=== PATIENT | female | born 1935 | race Caucasian/White ===

== ENCOUNTER → 2017-01-25 | Outpatient (CLI) | payer OTHER, BC ==
--- NOTE | 2017-01-25 10:56 | DIAGNOSTIC IMAGING REPORT ---
THORACIC SPINE 3-VIEWS CLINICAL HISTORY: Back pain status post trauma COMPARISON STUDY: No previous studies for comparison. FINDINGS: There is an S-shaped scoliosis. The paraspinal line is not displaced. There is age-indeterminate T10 compression fracture. IMPRESSION: Mild age-indeterminate T10 compression deformity. Electronically signed by: James March M.D. 01/25/2017 10:55 AM Dictated Date/Time: 01/25/2017 10:53 AM
--- NOTE | 2017-01-25 10:58 | DIAGNOSTIC IMAGING REPORT ---
RIGHT SCAPULA COMPLETE CLINICAL HISTORY: 82 years-old Female presenting with RIGHT SCAPULA PAIN Right. TECHNIQUE: Frontal and lateral views of the scapula were obtained. COMPARISON: Correlation made to plain radiographs of the left shoulder from 2015. FINDINGS: Glenohumeral and acromioclavicular joints grossly congruent. No displaced scapular fracture is apparent. The proximal humerus is normal in appearance. Regional soft tissues normal. IMPRESSION: No acute osseous injury of the right scapula. Electronically signed by: Woo Alvarez M.D. 01/25/2017 10:56 AM Dictated Date/Time: 01/25/2017 10:54 AM
== END | disposition home or self-care (01) ==
LOC: C.RDSM 10:27
PROVIDERS: ATTEND Physician Assistant
DX: M25.511 Pain in right shoulder (principal)

== ENCOUNTER 2021-02-17 12:47 | Inpatient (IN) ==
--- NOTE | 2021-02-17 13:16 | Emergency Department Note ---
Impression & Plan Hyponatremia, Acute metabolic encephalopathy, Hypomagnesemia, Hypocalcemia ED Provider Note NAME: SHIELA CHOE AGE: 86 SEX: F : 1935 ARRIVES VIA: Ambulance INFORMANT: Patient, ED PROVIDER(S): Lex Rivera MD Chief Complaint: Confusion HPI: Patient does present from home due to concern for confusion. The patient's son had reportedly called the patient and noted the patient to be confused. Will check was performed by police and the patient was noted to be walking around with her pants down and there was concern for the possibility of trauma as the patient did have a left forearm hematoma. Patient reportedly was not oriented to place or time. Upon presentation the patient denies any head or neck pain. Patient has any fevers or chills. She does not report any history of seizures. The patient is able to tell her name and birthday. She is able to state that she is in [place] and that she has a son named Camilo. Patient denies any fevers chills chest pain shortness of breath or vomiting. The patient does complain of some mild nausea. ROS: See HPI for pertinent positives and negatives. A total of 10 systems were reviewed and otherwise negative. History may be somewhat limited given the patient's confusion. Past medical history: See below Surgical history: See below Social history: See below Physical Exam: GENERAL: NAD, non-toxic. EYE EXAM: Normal conjunctiva. PERRL, no anisocoria and EOM's grossly intact w/o pain. OROPHARYNX: Dry mucus membranes. Grossly normal dentition. NECK: Supple, no nuchal rigidity, no adenopathy, non-tender. No signs of meningismus. No midline C-spine TTP. LUNGS: Clear to auscultation. Normal chest wall mechanics. HEART: NSR, no MRG. ABDOMEN: Abdomen soft, non-tender, normo-active bowel sounds, no masses, no rebound or guarding. BACK: No CVA TTP. SKIN: No rashes and no bruising. UPPER EXTREMITIES: Left forearm with ecchymosis and mild hematoma, compartments are soft and neurovascular intact distally, mild TTP. LOWER EXTREMITIES: Grossly normal, no edema. NEURO EXAM: Awake and alert, follows basic commands, able to answer person, state, and birthday, answers simple arithmetic, cranial nerves II-XII grossly intact, normal speech, moves all 4 extremities on command w/o issue. Differential diagnoses: Infection, dehydration, metabolic abnormality, hypo/hyperglycemia, electrolyte disturbance, anemia, hypoxia, cardiac sources, intracerebral event, toxicologic, neurologic, as well as other pathologies. Course: Patient was seen and evaluated the bedside. Full history physical exam was performed. EKG interpreted by me Sinus, rate of 83, normal CA and QRS, normal axis, T wave flattening in aVL, no ST changes. Imaging Studies: See Below Cardiac monitoring: An order was placed for continuous cardiac monitoring. The monitor shows a rate of 87 with sinus rhythm. MDM: Patient was seen due to concern for acute confusion. The patient did have blood work completed along with a CT of the head. The patient does have a normal white count and virtually normal hemoglobin at 11. The patient's kidney function is unremarkable but acute hyponatremia at 119. Patient is also also hypomagnesemic and hypocalcemic. The patient was ordered for urine and serum osmolality as well as urine electrolytes. Patient was ordered for calcium and magnesium replacement. UDS and alcohol are negative. Covid negative. CT of th e head is negative. I did speak the on-call hospitalist Jessica Kim PA-C with Dr. Wang and the patient was admitted to the medicine service. The patient was to be admitted to the intensive care unit. I did speak with the resident Dr. Jaimes of the ICU as well. I did attempt to speak with the patient's son but the patient's cell phone went to voicemail. Plain x-rays were unremarkable. Critical Care: I have personally spent 45 minutes of critical care time in direct management of this patient. This includes bedside care, interpretation of diagnostic studies, and testing, discussion with consultants, patient, and family members, and other require inpatient management activities. This 45 minutes is in excess of all separately billable procedures. Past Med/Surg History Medical History HTN (hypertension) Osteoporosis Surgical History History of hysterectomy Hx of appendectomy Family History Other Heart disease Stroke Social History Smoking Status: Never smoker Hx Substance Use: No Feels Safe at Home: Yes Allergies Allergies Allergy/AdvReac Type Severity Reaction Status Date / Time adhesive Allergy RASH Verified 02/17/21 16:48 bacitracin Allergy RASH Verified 02/17/21 16:48 Home Meds Home Medications Medication Instructions Recorded Confirmed alendronate 70 mg tablet (Fosamax) 70 mg PO WK 02/17/21 02/17/21 calcium carbonate 500 mg calcium 500 mg PO BID 02/17/21 02/17/21 (1,250 mg) tablet (Calcium 500) cholecalciferol (vitamin D3) 125 125 mcg PO DAILY 02/17/21 02/17/21 mcg (5,000 unit) tablet (Vitamin D3) fluticasone propionate 50 2 spray INTRANASAL DAILY 02/17/21 02/17/21 mcg/actuation nasal spray,suspension (Flonase Allergy Relief) hydrochlorothiazide 25 mg tablet 12.5 mg PO DAILY 02/17/21 02/17/21 lisinopril 20 mg tablet (Zestril) 20 mg PO DAILY 02/17/21 02/17/21 multivitamin with minerals 1 tab PO DAILY 02/17/21 02/17/21 Results & Data (ED) Vital Signs Vital Signs - 24 hr 02/17/21 12:54 02/17/21 13:07 02/17/21 13:15 Temperature 36.6 C Temperature Source Oral Pulse Rate 89 85 81 Pulse Rate from SpO2 Sensor 88 82 80 Respiratory Rate 26 H 24 27 H Respiratory Effort / Characteristics Non-Labored Blood Pressure 205/88 H Blood Pressure Mean 127 Pulse Oximetry 95 98 98 Oxygen Delivery Method Room Air Sepsis Recent Fever Within 48 Hours No Sepsis New/Unexplained Change in Mental Status Yes Sepsis Action Taken by Nursing No Action Required 02/17/21 13:31 02/17/21 13:47 02/17/21 14:01 Temperature Temperature Source Pulse Rate 77 90 83 Pulse Rate from SpO2 Sensor 77 87 84 Respiratory Rate 19 26 H 27 H Respiratory Effort / Characteristics Blood Pressure 163/97 H 144/66 H Blood Pressure Mean 119 92 Pulse Oximetry 98 98 100 Oxygen Delivery Method Room Air Room Air Room Air Sepsis Recent Fever Within 48 Hours Sepsis New/Unexplained Change in Mental Status Sepsis Action Taken by Nursing 02/17/21 14:15 Temperature Temperature Source Pulse Rate 87 Pulse Rate from SpO2 Sensor Respiratory Rate 23 Respiratory Effort / Characteristics Blood Pressure 143/79 H Blood Pressure Mean 100 Pulse Oximetry Oxygen Delivery Method Sepsis Recent Fever Within 48 Hours Sepsis New/Unexplained Change in Mental Status Sepsis Action Taken by Custodial Medications Current Medication List: was personally reviewed by me Laboratory Data Attestation: I reviewed the patient's lab results. Result diagrams: 02/17/21 14:16 02/17/21 14:16 Lab Results 02/17/21 02/17/21 02/17/21 Range/Units 13:08 13:26 13:26 WBC (4.8-10.8) K/uL RBC (4.2-5.4) M/uL Hgb (12.0-16.0) g/dL Hct (37-47) % MCV (80-100) fL MCH (25-34) pg MCHC (32-36) g/dL RDW Std Deviation (36.4-46.3) fL RDW Coeff of Ngozi (11.5-14.5) % Plt Count (130-400) K/uL MPV (7.4-10.4) fL Immature Gran % (Auto) % Neut % (Auto) % Lymph % (Auto) % [place] % (Auto) % Eos % (Auto) % Baso % (Auto) % Neut # (Auto) (1.4-6.5) K/uL Lymph # (Auto) (1.2-3.4) K/uL [place] # (Auto) (0.11-0.59) K/uL Eos # (Auto) (0-0.5) K/uL Baso # (Auto) (0-0.2) K/uL Immature Gran # (Auto) (0.00-0.02) K/uL PT (9.0-12.0) Seconds INR (0.9-1.1) APTT (21.0-31.0) Seconds PTT Ratio Sodium (136-145) mmol/L Potassium (3.5-5.1) mmol/L Chloride (98-107) mmol/L Carbon Dioxide (21-32) mmol/L Anion Gap (3-11) BUN (7-18) mg/dl Creatinine (0.6-1.2) mg/dl Est Cr Clr Drug Dosing ml/min Est GFR ( Amer) ml/min Est GFR (Non-Af Amer) ml/min BUN/Creatinine Ratio (10-20) Glucose (70-99) mg/dl POC Glucose 171 H (70-99) mg/dl Osmolality (280-300) mOsm/kg Lactate (0.4-2.0) mmol/L Calcium (8.5-10.1) mg/dl Magnesium (1.8-2.4) mg/dl Total Bilirubin (0.2-1) mg/dl AST (15-37) U/L ALT (12-78) U/L Alkaline Phosphatase (45-117) U/L Troponin I (0-0.045) ng/ml Total Protein (6.4-8.2) gm/dl Albumin (3.4-5.0) gm/dl Globulin (2.5-4.0) gm/dl Albumin/Globulin Ratio (0.9-2) Procalcitonin (0-0.5) ng/ml TSH (0.300-4.500) uIu/ml Urine Color Yellow Urine Appearance Clear (Clear) Urine pH 7.5 (4.5-7.5) Ur Specific [place] 1.015 (1.000-1.030) Urine Protein 1+ H (Negative) Urine Glucose (UA) 2+ H (Negative) Urine Ketones 2+ H (Negative) Urine Blood 1+ H (Negative) Urine Nitrite Negative (Negative) Urine Bilirubin Negative (Negative) Urine Urobilinogen Negative (Negative) Ur Leukocyte Esterase Negative (Negative) Urine WBC (Auto) 5-10 H (0-5) /hpf Urine RBC (Auto) 5-10 H (0-4) /hpf U Hyaline Cast (Auto) 1-5 (0-5) /lpf U Epithel Cells (Auto) 10-20 H (0-5) /lpf Urine Bacteria (Auto) Negative (Negative) Urine Opiates Screen Neg (Neg) Ur Methadone, Qual Neg (Neg) Urine Barbiturates Neg (Neg) Ur Phencyclidine (PCP) Neg (Neg) U Amphetamin/Meth Scrn Neg (Neg) MDMA (Ecstasy) Screen Neg (Neg) U Benzodiazepines Scrn Neg (Neg) Ur Cocaine Metabolite Neg (Neg) U Marijuana (THC) Screen Neg (Neg) Ethyl Alcohol mg/dL (0-3) mg/dl COVID-19 Eval Order SARS-CoV-2 (PCR) (Negative) 02/17/21 02/17/21 02/17/21 Range/Units 14:16 14:16 14:16 WBC 8.71 (4.8-10.8) K/uL RBC 3.66 L (4.2-5.4) M/uL Hgb 11.1 L (12.0-16.0) g/dL Hct 31.4 L (37-47) % MCV 85.8 (80-100) fL MCH 30.3 (25-34) pg MCHC 35.4 (32-36) g/dL RDW Std Deviation 38.3 (36.4-46.3) fL RDW Coeff of Ngozi 12.3 (11.5-14.5) % Plt Count 217 (130-400) K/uL MPV 10.7 H (7.4-10.4) fL Immature Gran % (Auto) 0.2 % Neut % (Auto) 89.1 % Lymph % (Auto) 4.9 % [place] % (Auto) 5.7 % Eos % (Auto) 0.0 % Baso % (Auto) 0.1 % Neut # (Auto) 7.75 H (1.4-6.5) K/uL Lymph # (Auto) 0.43 L (1.2-3.4) K/uL [place] # (Auto) 0.50 (0.11-0.59) K/uL Eos # (Auto) 0.00 (0-0.5) K/uL Baso # (Auto) 0.01 (0-0.2) K/uL Immature Gran # (Auto) 0.02 (0.00-0.02) K/uL PT 10.7 (9.0-12.0) Seconds INR 1.1 (0.9-1.1) APTT 25.2 (21.0-31.0) Seconds PTT Ratio 1.0 Sodium 119 L* (136-145) mmol/L Potassium 3.8 (3.5-5.1) mmol/L Chloride 85 L (98-107) mmol/L Carbon Dioxide 23 (21-32) mmol/L Anion Gap 11.0 (3-11) BUN 13 (7-18) mg/dl Creatinine 0.52 L (0.6-1.2) mg/dl Est Cr Clr Drug Dosing 65.8 ml/min Est GFR ( Amer) 99.6 ml/min Est GFR (Non-Af Amer) 85.9 ml/min BUN/Creatinine Ratio 25.7 H (10-20) Glucose 122 H (70-99) mg/dl POC Glucose (70-99) mg/dl Osmolality (280-300) mOsm/kg Lactate (0.4-2.0) mmol/L Calcium 7.7 L (8.5-10.1) mg/dl Magnesium 1.4 L (1.8-2.4) mg/dl Total Bilirubin 1.2 H (0.2-1) mg/dl AST 41 H (15-37) U/L ALT 29 (12-78) U/L Alkaline Phosphatase 59 (45-117) U/L Troponin I < 0.015 (0-0.045) ng/ml Total Protein 6.6 (6.4-8.2) gm/dl Albumin 3.3 L (3.4-5.0) gm/dl Globulin 3.3 (2.5-4.0) gm/dl Albumin/Globulin Ratio 1.0 (0.9-2) Procalcitonin (0-0.5) ng/ml TSH 2.790 (0.300-4.500) uIu/ml Urine Color Urine Appearance (Clear) Urine pH (4.5-7.5) Ur Specific [place] (1.000-1.030) Urine Protein (Negative) Urine Glucose (UA) (Negative) Urine Ketones (Negative) Urine Blood (Negative) Urine Nitrite (Negative) Urine Bilirubin (Negative) Urine Urobilinogen (Negative) Ur Leukocyte Esterase (Negative) Urine WBC (Auto) (0-5) /hpf Urine RBC (Auto) (0-4) /hpf U Hyaline Cast (Auto) (0-5) /lpf U Epithel Cells (Auto) (0-5) /lpf Urine Bacteria (Auto) (Negative) Urine Opiates Screen (Neg) Ur Methadone, Qual (Neg) Urine Barbiturates (Neg) Ur Phencyclidine (PCP) (Neg) U Amphetamin/Meth Scrn (Neg) MDMA (Ecstasy) Screen (Neg) U Benzodiazepines Scrn (Neg) Ur Cocaine Metabolite (Neg) U Marijuana (THC) Screen (Neg) Ethyl Alcohol mg/dL (0-3) mg/dl COVID-19 Eval Order SARS-CoV-2 (PCR) (Negative) 02/17/21 02/17/21 02/17/21 Range/Units 14:16 14:16 14:16 WBC (4.8-10.8) K/uL RBC (4.2-5.4) M/uL Hgb (12.0-16.0) g/dL Hct (37-47) % MCV (80-100) fL MCH (25-34) pg MCHC (32-36) g/dL RDW Std Deviation (36.4-46.3) fL RDW Coeff of Ngozi (11.5-14.5) % Plt Count (130-400) K/uL MPV (7.4-10.4) fL Immature Gran % (Auto) % Neut % (Auto) % Lymph % (Auto) % [place] % (Auto) % Eos % (Auto) % Baso % (Auto) % Neut # (Auto) (1.4-6.5) K/uL Lymph # (Auto) (1.2-3.4) K/uL [place] # (Auto) (0.11-0.59) K/uL Eos # (Auto) (0-0.5) K/uL Baso # (Auto) (0-0.2) K/uL Immature Gran # (Auto) (0.00-0.02) K/uL PT (9.0-12.0) Seconds INR (0.9-1.1) APTT (21.0-31.0) Seconds PTT Ratio Sodium (136-145) mmol/L Potassium (3.5-5.1) mmol/L Chloride (98-107) mmol/L Carbon Dioxide (21-32) mmol/L Anion Gap (3-11) BUN (7-18) mg/dl Creatinine (0.6-1.2) mg/dl Est Cr Clr Drug Dosing ml/min Est GFR ( Amer) ml/min Est GFR (Non-Af Amer) ml/min BUN/Creatinine Ratio (10-20) Glucose (70-99) mg/dl POC Glucose (70-99) mg/dl Osmolality (280-300) mOsm/kg Lactate 0.9 (0.4-2.0) mmol/L Calcium (8.5-10.1) mg/dl Magnesium (1.8-2.4) mg/dl Total Bilirubin (0.2-1) mg/dl AST (15-37) U/L ALT (12-78) U/L Alkaline Phosphatase (45-117) U/L Troponin I (0-0.045) ng/ml Total Protein (6.4-8.2) gm/dl Albumin (3.4-5.0) gm/dl Globulin (2.5-4.0) gm/dl Albumin/Globulin Ratio (0.9-2) Procalcitonin < 0.05 (0-0.5) ng/ml TSH (0.300-4.500) uIu/ml Urine Color Urine Appearance (Clear) Urine pH (4.5-7.5) Ur Specific [place] (1.000-1.030) Urine Protein (Negative) Urine Glucose (UA) (Negative) Urine Ketones (Negative) Urine Blood (Negative) Urine Nitrite (Negative) Urine Bilirubin (Negative) Urine Urobilinogen (Negative) Ur Leukocyte Esterase (Negative) Urine WBC (Auto) (0-5) /hpf Urine RBC (Auto) (0-4) /hpf U Hyaline Cast (Auto) (0-5) /lpf U Epithel Cells (Auto) (0-5) /lpf Urine Bacteria (Auto) (Negative) Urine Opiates Screen (Neg) Ur Methadone, Qual (Neg) Urine Barbiturates (Neg) Ur Phencyclidine (PCP) (Neg) U Amphetamin/Meth Scrn (Neg) MDMA (Ecstasy) Screen (Neg) U Benzodiazepines Scrn (Neg) Ur Cocaine Metabolite (Neg) U Marijuana (THC) Screen (Neg) Ethyl Alcohol mg/dL < 3.0 (0-3) mg/dl COVID-19 Eval Order SARS-CoV-2 (PCR) (Negative) 02/17/21 02/17/21 02/17/21 Range/Units 14:16 15:21 15:21 WBC (4.8-10.8) K/uL RBC (4.2-5.4) M/uL Hgb (12.0-16.0) g/dL Hct (37-47) % MCV (80-100) fL MCH (25-34) pg MCHC (32-36) g/dL RDW Std Deviation (36.4-46.3) fL RDW Coeff of Ngozi (11.5-14.5) % Plt Count (130-400) K/uL MPV (7.4-10.4) fL Immature Gran % (Auto) % Neut % (Auto) % Lymph % (Auto) % [place] % (Auto) % Eos % (Auto) % Baso % (Auto) % Neut # (Auto) (1.4-6.5) K/uL Lymph # (Auto) (1.2-3.4) K/uL [place] # (Auto) (0.11-0.59) K/uL Eos # (Auto) (0-0.5) K/uL Baso # (Auto) (0-0.2) K/uL Immature Gran # (Auto) (0.00-0.02) K/uL PT (9.0-12.0) Seconds INR (0.9-1.1) APTT (21.0-31.0) Seconds PTT Ratio Sodium (136-145) mmol/L Potassium (3.5-5.1) mmol/L Chloride (98-107) mmol/L Carbon Dioxide (21-32) mmol/L Anion Gap (3-11) BUN (7-18) mg/dl Creatinine (0.6-1.2) mg/dl Est Cr Clr Drug Dosing ml/min Est GFR ( Amer) ml/min Est GFR (Non-Af Amer) ml/min BUN/Creatinine Ratio (10-20) Glucose (70-99) mg/dl POC Glucose (70-99) mg/dl Osmolality 245 L (280-300) mOsm/kg Lactate (0.4-2.0) mmol/L Calcium (8.5-10.1) mg/dl Magnesium (1.8-2.4) mg/dl Total Bilirubin (0.2-1) mg/dl AST (15-37) U/L ALT (12-78) U/L Alkaline Phosphatase (45-117) U/L Troponin I (0-0.045) ng/ml Total Protein (6.4-8.2) gm/dl Albumin (3.4-5.0) gm/dl Globulin (2.5-4.0) gm/dl Albumin/Globulin Ratio (0.9-2) Procalcitonin (0-0.5) ng/ml TSH (0.300-4.500) uIu/ml Urine Color Urine Appearance (Clear) Urine pH (4.5-7.5) Ur Specific [place] (1.000-1.030) Urine Protein (Negative) Urine Glucose (UA) (Negative) Urine Ketones (Negative) Urine Blood (Negative) Urine Nitrite (Negative) Urine Bilirubin (Negative) Urine Urobilinogen (Negative) Ur Leukocyte Esterase (Negative) Urine WBC (Auto) (0-5) /hpf Urine RBC (Auto) (0-4) /hpf U Hyaline Cast (Auto) (0-5) /lpf U Epithel Cells (Auto) (0-5) /lpf Urine Bacteria (Auto) (Negative) Urine Opiates Screen (Neg) Ur Methadone, Qual (Neg) Urine Barbiturates (Neg) Ur Phencyclidine (PCP) (Neg) U Amphetamin/Meth Scrn (Neg) MDMA (Ecstasy) Screen (Neg) U Benzodiazepines Scrn (Neg) Ur Cocaine Metabolite (Neg) U Marijuana (THC) Screen (Neg) Ethyl Alcohol mg/dL (0-3) mg/dl COVID-19 Eval Order Covid19 at [facility] SARS-CoV-2 (PCR) NEGATIVE (Negative) Administered Medications Discontinued Medications Sodium Chloride (Nss 1000ml) 1,000 mls @ 999 mls/hr IV .[id number] THERESA Stop: 02/17/21 14:30 Last Infusion: 02/17/21 14:30 Dose: 0 mls/hr Documented by: [id number] Admin: 02/17/21 13:29 Dose: 999 mls/hr Documented by: [id number] Piperacillin Sod/Tazobactam Sod (Zosyn) 4.5 gm in 120 mls @ 240 mls/hr IV NOW O NE Stop: 02/17/21 13:49 Last Infusion: 02/17/21 15:14 Dose: 0 mls/hr Documented by: [id number] Admin: 02/17/21 14:42 Dose: 240 mls/hr Documented by: [id number] Calcium Gluconate () 1,000 mg in 60 mls @ 240 mls/hr IV NOW STA Stop: 02/17/21 15:37 Last Infusion: 02/17/21 15:53 Dose: 0 mls/hr Documented by: [id number] Admin: 02/17/21 15:38 Dose: 240 mls/hr Documented by: [id number] Magnesium Sulfate/Dextrose (Magnesium Sulfate / D5w) 1 gm in 100 mls @ 100 mls/hr IV NOW STA Stop: 02/17/21 16:22 Last Admin: 02/17/21 16:20 Dose: 100 mls/hr Documented by: [id number] Ondansetron HCl (Ondansetron Inj 2 Mg/Ml 2 Ml Vial) 4 mg IV NOW STA Stop: 02/17/21 14:05 Last Admin: 02/17/21 14:08 Dose: 4 mg Documented by: [id number] Imaging Data Radiologist's Impression: Chest X-Ray 02/17/21 13:20 XR chest 1V portable INDICATION: [place] ^SEPSIS ^CT AT 1330. TECHNIQUE: Single frontal radiograph of the chest was obtained. Comparison: None available at the time of this dictation. FINDINGS: No lines and tubes are seen. Cardiomegaly is noted. The aorta is tortuous. The lungs are clear. No evidence of pleural effusion or pneumothorax. IMPRESSION: No acute chest disease and in particular no evidence of pneumonia. ACT 112: Negative or not required by law. Electronically signed by: Atilio Carcamo M.D. 02/17/2021 2:34 PM Forearm X-Ray 02/17/21 13:20 XR forearm LT 2V HISTORY: 86 years-old Female bruising acute pain of the left forearm with soft tissue swelling COMPARISON: Left hand radiographs 11/29/2013 TECHNIQUE: 2 views of the left forearm FINDINGS: Demineralized appearance of the bones. 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 Soft tissue swelling of the elbow and proximal forearm. No acute fracture, dislocation or opaque foreign body. IMPRESSION: Soft tissue swelling without acute fracture. ACT 112: Negative or not required by law. The above report was generated using voice recognition software. It may contain grammatical, syntax or spelling errors. Electronically signed by: Marcellus Trevino M.D. 02/17/2021 2:[address] 02/17/21 13:[address] DOSE: 729.78 mGycm HISTORY: confusion TECHNIQUE: Multiaxial CT images of the head were performed without the use of intravenous contrast. Automated exposure control was utilized for this study. A dose lowering technique was utilized adhering to the principles of ALARA. Comparison: None. Findings: The paranasal sinuses and mastoid air cells are clear. The calvarium and skull base are intact. There is no mass, hematoma, midline shift, acute infarct. White matter hypodensity is nonspecific but suggestive of microvascular ischemic change. The ventricles and sulci demonstrate mild age-related involutional changes. Impression: No acute intracranial abnormality. Atrophy and microvascular ischemic changes. ACT 112: Negative or not required by law. Electronically signed by: Doug Cheema M.D. 02/17/2021 1:57 PM Discharge Plan Visit Data Chief Complaint: Altered Mental Status Stated Complaint: AMS ED Provider: Lex Rivera Discharge Problem: Hyponatremia, Acute metabolic encephalopathy, Hypomagnesemia, Hypocalcemia Forms Stand Alone Forms: [facility] [employer] Prescriptions Prescriptions: No Action lisinopril [Zestril] 20 mg tablet 20 mg PO DAILY RF: 0 alendronate [Fosamax] 70 mg tablet 70 mg PO WK RF: 0 hydrochlorothiazide 25 mg tablet 12.5 mg PO DAILY RF: 0 calcium carbonate [Calcium 500] 500 mg calcium (1,250 mg) Tablet 500 mg PO BID RF: 0 multivitamin with minerals Tablet 1 tab PO DAILY RF: 0 fluticasone propionate [Flonase Allergy Relief] 50 mcg/actuation spray,suspension 2 spray INTRANASAL DAILY RF: 0 cholecalciferol (vitamin D3) [Vitamin D3] 125 mcg (5,000 unit) Tablet 125 mcg PO DAILY RF: 0 Referrals Referrals: Marco Parks MD [Primary Care Provider] -
[2021-02-17] MEDS ORDERED: PIPERACILL/TAZOBAC CONSULT ACTIVE PRN (13:20)
[2021-02-17] MEDS ORDERED: PIPERACILLIN/TAZOBACTAM 4.5 GM/120 ML BAG IV ONE (13:20)
[2021-02-17] MEDS ORDERED: SODIUM CHLORIDE 0.9% 1000ML 1,000 ML IV SCH ×2 (13:30→20:09)
[2021-02-17 13:41] LABS: Appearance Urine Clear (Clear); Bacteria Urine Automated Negative (Negative); Bilirubin Urine Negative (Negative); Blood Urine 1+ (Negative); Color Urine Yellow; Glucose Urine UA 2+ (Negative); Ketones Urine 2+ (Negative); Leukocyte Esterase Urine Negative (Negative); Nitrite Urine Negative (Negative); Specific Gravity Urine 1.015 (1.000-1.030); Urobilinogen Urine Negative (Negative); pH Urine 7.5 (4.5-7.5)
[2021-02-17 13:59] LABS: Protein Urine 1+ (Negative)
--- NOTE | 2021-02-17 13:59 | CT Scan Report ---
HEAD CT NONCONTRAST CT DOSE: 729.78 mGycm HISTORY: confusion TECHNIQUE: Multiaxial CT images of the head were performed without the use of intravenous contrast. A utomated exposure control was utilized for this study. A dose lowering technique was utilized adheri ng to the principles of ALARA. Comparison: None. Findings: The paranasal sinuses and mastoid air cells are clear. The calvarium and skull base are int act. There is no mass, hematoma, midline shift, acute infarct. White matter hypodensity is nonspecifi c but suggestive of microvascular ischemic change. The ventricles and sulci demonstrate mild age-rela annika involutional changes. Impression: No acute intracranial abnormality. Atrophy and microvascular ischemic changes. ACT 112: Negative or not required by law. Electronically signed by: Doug Cheema M.D. 02/17/2021 1:57 PM
[2021-02-17] MEDS ORDERED: ONDANSETRON INJ 2 MG/ML 2 ML VIAL IV STA (14:04)
[2021-02-17 14:06] LABS: Amphetamines+Metham, Urine Neg (Neg); Barbiturates, Urine Neg (Neg); Benzodiazepine, Urine Neg (Neg); Cocaine, Urine Neg (Neg); MDMA (Ecstacy), Urine Neg (Neg); Methadone, Urine Neg (Neg); Opiate, Urine Neg (Neg); Phencyclidine, Urine Neg (Neg)
--- NOTE | 2021-02-17 14:35 | XRay Report ---
XR chest 1V portable INDICATION: [place] ^SEPSIS ^CT AT 1330. TECHNIQUE: Single frontal radiograph of the chest was obtained. Comparison: None available at the time of this dictation. FINDINGS: No lines and tubes are seen. Cardiomegaly is noted. The aorta is tortuous. The lungs are clear. No ev idence of pleural effusion or pneumothorax. IMPRESSION: No acute chest disease and in particular no evidence of pneumonia. ACT 112: Negative or not required by law. Electronically signed by: Atilio Carcamo M.D. 02/17/2021 2:34 PM
--- NOTE | 2021-02-17 14:37 | XRay Report ---
XR forearm LT 2V HISTORY: 86 years-old Female bruising acute pain of the left forearm with soft tissue swelling COMPARISON: Left hand radiographs 11/29/2013 TECHNIQUE: 2 views of the left forearm FINDINGS: Demineralized appearance of the bones. Osteoarthritis of the wrist, hand and elbow include severe ost eoarthritis of the first carpal metacarpal joint. Soft tissue swelling of the elbow and proximal fore arm. No acute fracture, dislocation or opaque foreign body. IMPRESSION: Soft tissue swelling without acute fracture. ACT 112: Negative or not required by law. The above report was generated using voice recognition software. It may contain grammatical, syntax o r spelling errors. Electronically signed by: Marcellus Trevino M.D. 02/17/2021 2:35 PM
[2021-02-17 14:48] LABS: Basophils # (auto) 0.01 K/uL (0-0.2); Basophils % (auto) 0.1 %; Hematocrit (blood only) 31.4 % (37-47); Hemoglobin 11.1 g/dL (12.0-16.0); Immature Granulocytes # (auto) 0.02 K/uL (0.00-0.02); Immature Granulocytes % (auto) 0.2 %; Lymphocytes # (auto) 0.43 K/uL (1.2-3.4); Lymphocytes % (auto) 4.9 %; Mean Corpuscular Hemoglobin 30.3 pg (25-34); Mean Corpuscular Hgb Conc 35.4 g/dL (32-36); Mean Corpuscular Volume 85.8 fL (80-100); Mean Platelet Volume 10.7 fL (7.4-10.4); Monocytes % (auto) 5.7 %; Neutrophils # (auto) 7.75 K/uL (1.4-6.5); Neutrophils % (auto) 89.1 %; Platelet Count 217 K/uL (130-400); RDW Coefficient of Variation 12.3 % (11.5-14.5); RDW Standard Deviation 38.3 fL (36.4-46.3); Red Blood Count 3.66 M/uL (4.2-5.4); White Blood Count 8.71 K/uL (4.8-10.8)
[2021-02-17 15:15] LABS: Alanine Aminotransferase 29 U/L (12-78); Albumin Level 3.3 gm/dl (3.4-5.0); Aspartate Aminotransferase 41 U/L (15-37); BUN Creatinine Ratio 25.7 (10-20); Blood Urea Nitrogen 13 mg/dl (7-18); Calcium 7.7 mg/dl (8.5-10.1); Carbon Dioxide 23 mmol/L (21-32); Chloride 85 mmol/L (98-107); Creatinine Clr Calc Pharmacy 65.8 ml/min; Est GFR (African American) 99.6 ml/min; Est GFR (Non-African American) 85.9 ml/min; Glucose 122 mg/dl (70-99); Magnesium 1.4 mg/dl (1.8-2.4); Potassium 3.8 mmol/L (3.5-5.1); Sodium 119 mmol/L (136-145)
[2021-02-17 15:19] LABS: Alkaline Phosphatase 59 U/L (45-117); Bilirubin,Total 1.2 mg/dl (0.2-1); Globulin 3.3 gm/dl (2.5-4.0); Total Protein 6.6 gm/dl (6.4-8.2); Troponin I < 0.015 ng/ml (0-0.045)
[2021-02-17] MEDS ORDERED: MAGNESIUM SULFATE / D5W 1 GM/100 ML BAG IV STA (15:23)
[2021-02-17] MEDS ORDERED: CALCIUM GLUCONATE 1,000 MG/60 ML BAG IV STA (15:23)
[2021-02-17 15:29] LABS: INR 1.1 (0.9-1.1); Partial Thromboplastin Time 25.2 Seconds (21.0-31.0); Prothrombin Time 10.7 Seconds (9.0-12.0)
--- NOTE | 2021-02-17 16:06 | History & Physical Report ---
Date of Service February 17, 2021 Assessment & Plan (1) Acute metabolic encephalopathy: (2) Hyponatremia: Plan: This is an 86yo F with a PMH of HTN and osteoporosis who presents with confusion since yesterday. Sodium of 119, confused since yesterday Last sodium in outpatient records 139 in Dec 2019 Hypotonic hypovolemic hyponatremia Appears dehydrated from working outside yesterday, also on diuretic Given 1 L NSS in ED Hold HCTZ Repeat BMP ordered for 1800 Nephrology consulted Consulted events solutions consultant, who will manage in ICU (3) HTN (hypertension): Plan: BP 143/79 Holding hctz given hyponatremia Also on lisinopril (4) Hypomagnesemia: Plan: Replaced in ED (5) Hypocalcemia: Plan: Replaced in ED PCP: Charly Dispo: Admit to ICU Patient seen in collaboration with Dr. Waller. Please see addendum. History of Present Illness Chief Complaint: confusion Primary Care Provider: Marco Parks MD This is an 86yo F with a PMH of HTN and osteoporosis who presents with confusion since yesterday. Was reportedly outside weeding during the day but had to sit down due to developing nausea. Son called her yesterday and noticed she seemed confused and slow to find her words. No slurring of speech. Son had a friend stop by house to check on her and he confirmed she seemed confused. At baseline patient is A&Ox3, lives alone, ambulates independently. Has been repeating herself and telling the same stories since yesterday. No headache, CP, SOB. No fever or chills. No focal weakness, ambulatory dysfunction. Oriented to person but unable to recall birthday. Tangential speech when asked specific questions but able to follow directions during exam. No urinary incontinence. Poor PO intake lately. Takes 12.5 mg HCTZ daily for HTN. Allergies Allergy/AdvReac Type Severity Reaction Status Date / Time adhesive Allergy RASH Verified 02/17/21 16:48 bacitracin Allergy RASH Verified 02/17/21 16:48 Home Medications Medication Instructions Recorded Confirmed Type alendronate 70 mg tablet (Fosamax) 70 mg PO WK 02/17/21 02/17/21 History calcium carbonate 500 mg calcium 500 mg PO BID 02/17/21 02/17/21 History (1,250 mg) tablet (Calcium 500) cholecalciferol (vitamin D3) 125 125 mcg PO DAILY 02/17/21 02/17/21 History mcg (5,000 unit) tablet (Vitamin D3) fluticasone propionate 50 2 spray INTRANASAL DAILY 02/17/21 02/17/21 History mcg/actuation nasal spray,suspension (Flonase Allergy Relief) hydrochlorothiazide 25 mg tablet 12.5 mg PO DAILY 02/17/21 02/17/21 History lisinopril 20 mg tablet (Zestril) 20 mg PO DAILY 02/17/21 02/17/21 History multivitamin with minerals 1 tab PO DAILY 02/17/21 02/17/21 History Past Med/Surg History Medical History HTN (hypertension) Osteoporosis Surgical History History of hysterectomy Hx of appendectomy Family History Other Heart disease Stroke Social History Smoking Status: Never smoker Hx Substance Use: No Feels Safe at Home: Yes Review of Systems Review of Systems: At least ten systems reviewed and negative except as noted in the HPI. Physical Exam Physical Exam: Please see Dr. Waller's addendum for physical exam. Results & Data Results & Data ([facility]) Vital Signs (Past 12 Hours) Vital Signs Temp Pulse Resp BP Pulse Ox 02/17/21 14:15 87 23 143/79 H 02/17/21 14:01 83 27 H 144/66 H 100 02/17/21 13:47 90 26 H 163/97 H 98 02/17/21 13:31 77 19 98 02/17/21 13:15 81 27 H 98 02/17/21 13:07 85 24 98 02/17/21 12:54 36.6 C 89 26 H 205/88 H 95 Laboratory Results Short CBC 02/17/21 02/17/21 Range/Units 14:16 14:16 WBC 8.71 (4.8-10.8) K/uL Hgb 11.1 L (12.0-16.0) g/dL Hct 31.4 L (37-47) % Plt Count 217 (130-400) K/uL Sodium 119 L* (136-145) mmol/L BMP 02/17/21 14:16 Sodium 119 L* Potassium 3.8 Chloride 85 L Carbon Dioxide 23 BUN 13 Creatinine 0.52 L Glucose 122 H Calcium 7.7 L Cardiac Enzymes 02/17/21 Range/Units 14:16 Troponin I < 0.015 (0-0.045) ng/ml Liver Function 02/17/21 Range/Units 14:16 Total Bilirubin 1.2 H (0.2-1) mg/dl AST 41 H (15-37) U/L ALT 29 (12-78) U/L Alkaline Phosphatase 59 (45-117) U/L Albumin 3.3 L (3.4-5.0) gm/dl Urine 02/17/21 Range/Units 13:26 Urine Color Yellow Urine Appearance Clear (Clear) Urine pH 7.5 (4.5-7.5) Ur Specific [place] 1.015 (1.000-1.030) Urine Protein 1+ H (Negative) Urine Glucose (UA) 2+ H (Negative) Diagnostic Findings Chest X-Ray 02/17/21 13:20 XR chest 1V portable INDICATION: [place] ^SEPSIS ^CT AT 1330. TECHNIQUE: Single frontal radiograph of the chest was obtained. Comparison: None available at the time of this dictation. FINDINGS: No lines and tubes are seen. Cardiomegaly is noted. The aorta is tortuous. The lungs are clear. No evidence of pleural effusion or pneumothorax. IMPRESSION: No acute chest disease and in particular no evidence of pneumonia. ACT 112: Negative or not required by law. Electronically signed by: Atilio Carcamo M.D. 02/17/2021 2:34 PM Forearm X-Ray 02/17/21 13:20 XR forearm LT 2V HISTORY: 86 years-old Female bruising acute pain of the left forearm with soft tissue swelling COMPARISON: Left hand radiographs 11/29/2013 TECHNIQUE: 2 views of the left forearm FINDINGS: Demineralized appearance of the bones. 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 Soft tissue swelling of the elbow and proximal forearm. No acute fracture, dislocation or opaque foreign body. IMPRESSION: Soft tissue swelling without acute fracture. ACT 112: Negative or not required by law. The above report was generated using voice recognition software. It may contain grammatical, syntax or spelling errors. Electronically signed by: Marcellus Trevino M.D. 02/17/2021 2:[address] 02/17/21 13:[address] DOSE: 729.78 mGycm HISTORY: confusion TECHNIQUE: Multiaxial CT images of the head were performed without the use of intravenous contrast. Automated exposure control was utilized for this study. A dose lowering technique was utilized adhering to the principles of ALARA. Comparison: None. Findings: The paranasal sinuses and mastoid air cells are clear. The calvarium and skull base are intact. There is no mass, hematoma, midline shift, acute infarct. White matter hypodensity is nonspecific but suggestive of microvascular ischemic change. The ventricles and sulci demonstrate mild age-related involutional changes. Impression: No acute intracranial abnormality. Atrophy and microvascular ischemic changes. ACT 112: Negative or not required by law. Electronically signed by: Doug Cheema M.D. 02/17/2021 1:57 PM Supervising Physician Co-Signing Physician Notes Pt is a 86 y/o F with hx of Eczema, HTN, Osteoporosis admitted for confusion with HypoNa+ PE: NAD, cachectic Heart: Normal S1/S2, no murmur Lungs: CTA, no wheezing or crackle Abd: ND, NT, soft LE: no edema Skin: skin erythema and scaling on the face Psych: AAOx1, normal Affect Plan: HypoNa+: -2/2 recent HCTZ use + dehydration (pt spent 4 hrs outdoor yesterday) -s/p bolus --Na+ correction 4-6 meq in 24 hrs -Trend BMP and correct K+ as needed -ICU consulted for AMS and HypoNa+ --- pt is getting admitted to the ICU HTN: -hold HCTZ -Agree with A/P by Jessica Kim PA-C
--- NOTE | 2021-02-17 16:07 | Electrocardiogram Report ---
Test Reason : Blood Pressure : / mmHG Vent. Rate : 083 BPM Atrial Rate : 083 BPM P-R Int : 162 ms QRS Dur : 088 ms QT Int : 436 ms P-R-T Axes : 084 078 072 degrees QTc Int : 512 ms Poor data quality, interpretation may be adversely affected Sinus rhythm with occasional PACs Possible Left atrial enlargement Prolonged QT Abnormal ECG No previous ECGs available Confirmed by Robin Doan ([id number]) on 02/17/2021 4:06:41 PM Referred By: Confirmed By:Feliciano Doan
--- NOTE | 2021-02-17 16:20 | Critical Care Consultation ---
Date of Consultation February 17, 2021 Assessment & Plan (1) Acute metabolic encephalopathy: Reason Critically Ill: Vaishnavi Bernal is an 86 y/o female w/ PMHx of HTN who presents w/ a day of worsening altered mental status likely secondary to acute hyponatremia. Neuro - [facility] ICU: deferred. acute AMS likely 2/2 hyponatremia + hypometria and mild-mod expressive aphasia which can be explained by hyponatremia. considered other etiologies. Low suspicion for infection at this time. Head CT w/o acute changes. Patient denies fall or head injury. check orthostatic blood pressures. Cardiac - Ecg w/ prolonged qtc 512. Avoid qtc-prolonging agents. monitor on telemetry. Respiratory - Saturating well on room air. No respiratory distress. No hx of lung disease. GI - Regular diet RENAL/LYTES - acute hyponatremia (last Na 1 year ago was 139), less likely chronic hypotonic per serum osm most likely hypovolemic hyponatremia, 2/2 dehydration and HCTZ use.. less likely SIADH, psychogenic polydipsia per exam, hypo vs euvolemic recent HCTZ use and dehydration q4h BMP Na recheck pending at 6pm. Will likely start patient on 100ml/hr NSS. goal of 125 in first 24 hours. Replace lytes as needed. Hypo Mg. Corrected Ca 8.2. - No james. Strict Is/Os. Consider james. ENDO - No known hx of DM. urine ketones/glucose noted ICU hyperglycemia protocol. Check A1c in AM. Reported distant hx of hyperthyroidism per son, patient denies recent thyroid medications. W/ subj warmth, will check TSH w/ next lab draw. HEME - Stable H/H. Follow CBC ID - No concerns for infection at this point. Will d/c empiric Zosyn. UA not c/w infection. BC, UC pending. Per patient, received covid vaccine booster 1 wk ago. LINES/IV ACCESS - PIVs intact. DVT PROPHYLAXIS - SQ Lovenox code: DNR/DNI dispo: ICU (2) Hyponatremia: (3) HTN (hypertension): (4) Osteoporosis: (5) Hypomagnesemia: (6) Hypocalcemia: Supervising Physician Co-Signing Physician Notes Dr. Jaimes was resident physician during care of patient. I separately evaluated patient for sellers portions of the history and the exam. I was present during the critical portion of medical decision making, and I discussed the case with the resident. I generally agree with the findings and plan. Given 1 L normal saline in emergency department this should lead to significant correction trend BMP every 6 hours. Patient critically ill due to hyponatremia I have personally spent 35 minutes of critical care time in the direct management of this patient. This is a life/limb threatening event. This includes time spent evaluating patient, direct bedside care, chart review, plac ing orders, interpretation of diagnostic studies, discussion with consultants, patient, and/or family members regarding treatment decisions, as well as other required patient management activities. This time is exclusive of all separately billable procedures, and teaching time and separate from and in addition to any other critical care service time. History of Present Illness Reason for Consultation: altered mental status, hyponatremia Attending Physician: Dr. Rom Waller History of Present Illness Vaishnavi Bernal is a 86 y/o female w/ PMHx of HTN, prior hyperthyroidism (per son, but not in chart), hx of skin cancer, and osteoporosis who presents w/ AMS acutely this morning, potentially since yesterday evening. Patient lives alone and son calls her nightly. Per son, no dementia and patient is normally conv ersive w/o any issues. At baseline, she is able to take care of her ADLs and is generally healthy, including attending yoga class. She sounded normal 2 days ago, but during yesterday's phone call, had mild word-finding difficulties (and inability to tell a "fluent" story). This morning, son's friend, who is a police lieutenant patrol checked in on the patient and found her partially clothed and confused outside in the lawn. The patient had apparently been gardening and trimming shrubs in the hot weather wearing long-sleeved clothing. Regarding the speech problem, son notes that it is worse today than yesterday, but slightly better this afternoon than at initial ED arrival. Patient denies hitting her head or falling. Denies substance use. She bruised her left elbow from hitting against a bossman ledge in her garden. Per patient, and [facility] EMR, no use of blood thinners. Patient does not believe she took her AM meds this morning. Currently, she denies any pain. She has slight confusion. She feels dizzy when getting up from supine position. ED course: s/p 1L NSS bolus. Na 119 at 2PM. s/p [address] dose [address]osyn. Head CT w/o acute changes. Allergies Allergy/AdvReac Type Severity Reaction Status Date / Time adhesive Allergy RASH Verified 02/17/21 16:48 bacitracin Allergy RASH Verified 02/17/21 16:48 Home Medications Medication Instructions Recorded Confirmed Type alendronate 70 mg tablet (Fosamax) 70 mg PO WK 02/17/21 02/17/21 History calcium carbonate 500 mg calcium 500 mg PO BID 02/17/21 02/17/21 History (1,250 mg) tablet (Calcium 500) cholecalciferol (vitamin D3) 125 125 mcg PO DAILY 02/17/21 02/17/21 History mcg (5,000 unit) tablet (Vitamin D3) fluticasone propionate 50 2 spray INTRANASAL DAILY 02/17/21 02/17/21 History mcg/actuation nasal spray,suspension (Flonase Allergy Relief) hydrochlorothiazide 25 mg tablet 12.5 mg PO DAILY 02/17/21 02/17/21 History lisinopril 20 mg tablet (Zestril) 20 mg PO DAILY 02/17/21 02/17/21 History multivitamin with minerals 1 tab PO DAILY 02/17/21 02/17/21 History Patient History Medical History HTN (hypertension) Osteoporosis Surgical History History of hysterectomy Hx of appendectomy Family History Other Heart disease Stroke Social History Smoking Status: Never smoker Hx Alcohol Use: Yes Alcohol type: wine Hx Substance Use: No Preferred Language: [place] Communication Ability: Effective Marketing Research Analyst Required: No Beliefs That Will Affect Care: None Current Living Situation: Alone Other Information That Helps Us Care for You: No Feels Safe at Home: Yes Safety Concerns: Feels Safe At This Time Review of Systems Review of Systems: All systems reviewed & are unremarkable except as noted in HPI & below Constitutional: Denies fever, chills Eyes: Denies blurry vision, vision changes Cardiovascular: Denies chest pain, palpitations Respiratory: Denies shortness of breath Gastrointestinal: Denies abdominal pain, nausea, vomiting, constipation, diarrhea Genitourinary: Denies urinary symptoms including dysuria Musculoskeletal: Denies weakness, muscle aches/pain, joint aches/pain Neurological: Denies headache, numbness, tingling, focal weakness. + dizziness w/ movement. + confusion. Physical Exam Physical Exam: General: A and O x2 to person and place (ED), but not context. NAD. Cooperative. Elderly, frail appearing. HEENT: Atraumatic, normocephalic. Neg Raccoon eyes. Neg Mondragon's sign. EOMI. PERRL. Scleral appearance at baseline per son. Pulm: CTAB. -wheezes, -rales, -rhonchi. No respiratory distress. Cardiac: RRR, -mrg. Radial pulses intact and symmetrical. Abdominal: Nontender, nondistended, soft. Neuro. Failed [id number] test bilaterally; hypometria. Integ: thin skin. Bruise at L elbow. No LE edema. Some chronic sun changes of skin at left cheek, not new per son. Results & Data Results & Data ([facility]) Vital Signs (Past 12 Hours) Vital Signs Temp Pulse Resp BP Pulse Ox 02/17/21 14:15 87 23 143/79 H 02/17/21 14:01 83 27 H 144/66 H 100 02/17/21 13:47 90 26 H 163/97 H 98 02/17/21 13:31 77 19 98 02/17/21 13:15 81 27 H 98 02/17/21 13:07 85 24 98 02/17/21 12:54 36.6 C 89 26 H 205/88 H 95 Laboratory Results Cardiac Enzymes 02/17/21 Range/Units 14:16 AST 41 H (15-37) U/L Troponin I < 0.015 (0-0.045) ng/ml Coagulation 02/17/21 Range/Units 14:16 PT 10.7 (9.0-12.0) Seconds APTT 25.2 (21.0-31.0) Seconds CBC 02/17/21 Range/Units 14:16 WBC 8.71 (4.8-10.8) K/uL RBC 3.66 L (4.2-5.4) M/uL Hgb 11.1 L (12.0-16.0) g/dL Hct 31.4 L (37-47) % Plt Count 217 (130-400) K/uL Neut # (Auto) 7.75 H (1.4-6.5) K/uL Lymph # (Auto) 0.43 L (1.2-3.4) K/uL [place] # (Auto) 0.50 (0.11-0.59) K/uL Eos # (Auto) 0.00 (0-0.5) K/uL Baso # (Auto) 0.01 (0-0.2) K/uL Comprehensive Metabolic Panel 02/17/21 Range/Units 14:16 Sodium 119 L* (136-145) mmol/L Potassium 3.8 (3.5-5.1) mmol/L Chloride 85 L (98-107) mmol/L Carbon Dioxide 23 (21-32) mmol/L BUN 13 (7-18) mg/dl Creatinine 0.52 L (0.6-1.2) mg/dl Glucose 122 H (70-99) mg/dl Calcium 7.7 L (8.5-10.1) mg/dl AST 41 H (15-37) U/L ALT 29 (12-78) U/L Alkaline Phosphatase 59 (45-117) U/L Total Protein 6.6 (6.4-8.2) gm/dl Albumin 3.3 L (3.4-5.0) gm/dl Intake and Output 02/17/21 02/17/21 02/17/21 06:59 14:59 22:59 Intake Total 1000 / 1280 280 / 1280 Balance 1000 / 1280 280 / 1280 Intake: IV 1000 / 1280 280 / 1280 Calcium Gluconate 1,000 mg In 60 / 60 60 ml @ 240 mls/hr IV NOW STA Rx#:[id number] Magnesium Sulfate / D5w 1 gm In 100 / 100 100 ml @ 100 mls/hr IV NOW STA Rx#:[id number] Piperacillin/Tazobactam 4.5 gm 120 / 120 In 120 ml @ 240 mls/hr IV NOW ONE Rx#:[id number] Sodium Chloride 0.9% 1000ML 1, 1000 / 1000 000 ml @ 999 mls/hr IV .Q1H1M THERESA Rx#:[id number] Other: Weight 60 kg Weight Measurement Method Built in [facility] Patient Weight 02/18/21 06:59 Weight 60 kg Diagnostic Findings Chest X-Ray 02/17/21 13:20 XR chest 1V portable INDICATION: [place] ^SEPSIS ^CT AT 1330. TECHNIQUE: Single frontal radiograph of the chest was obtained. Comparison: None available at the time of this dictation. FINDINGS: No lines and tubes are seen. Cardiomegaly is noted. The aorta is tortuous. The lungs are clear. No evidence of pleural effusion or pneumothorax. IMPRESSION: No acute chest disease and in particular no evidence of pneumonia. ACT 112: Negative or not required by law. Electronically signed by: Atilio Carcamo M.D. 02/17/2021 2:34 PM Forearm X-Ray 02/17/21 13:20 XR forearm LT 2V HISTORY: 86 years-old Female bruising acute pain of the left forearm with soft tissue swelling COMPARISON: Left hand radiographs 11/29/2013 TECHNIQUE: 2 views of the left forearm FINDINGS: Demineralized appearance of the bones. 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 Soft tissue swelling of the elbow and proximal forearm. No acute fracture, dislocation or opaque foreign body. IMPRESSION: Soft tissue swelling without acute fracture. ACT 112: Negative or not required by law. The above report was generated using voice recognition software. It may contain grammatical, syntax or spelling errors. Electronically signed by: Marcellus Trevino M.D. 02/17/2021 2:[address] 02/17/21 13:[address] DOSE: 729.78 mGycm HISTORY: confusion TECHNIQUE: Multiaxial CT images of the head were performed without the use of intravenous contrast. Automated exposure control was utilized for this study. A dose lowering technique was utilized adhering to the principles of ALARA. Comparison: None. Findings: The paranasal sinuses and mastoid air cells are clear. The calvarium and skull base are intact. There is no mass, hematoma, midline shift, acute infarct. White matter hypodensity is nonspecific but suggestive of microvascular ischemic change. The ventricles and sulci demonstrate mild age-related involutional changes. Impression: No acute intracranial abnormality. Atrophy and microvascular ischemic changes. ACT 112: Negative or not required by law. Electronically signed by: Doug Cheema M.D. 02/17/2021 1:57 PM Resident Activity Tracking Resident Involvement: Resident Care Provided Care Provided: Adult [facility] Medicine
[2021-02-17 18:55] LABS: BUN Creatinine Ratio 22.2 (10-20); Calcium 7.9 mg/dl (8.5-10.1); Creatinine Clr Calc Pharmacy 64.6 ml/min; Est GFR (African American) 98.9 ml/min; Est GFR (Non-African American) 85.4 ml/min; Potassium 3.6 mmol/L (3.5-5.1)
[2021-02-17] MEDS ORDERED: ICU PROTOCOL FOR HYPERGLYCEMIA PRN ×2 (20:09)
[2021-02-17] MEDS ORDERED: ENOXAPARIN INJ 40 MG/0.4 ML SYR SQ SCH (21:00)
[2021-02-17 23:14] LABS: BUN Creatinine Ratio 17.7 (10-20); Calcium 7.9 mg/dl (8.5-10.1); Creatinine Clr Calc Pharmacy 38.4 ml/min; Est GFR (African American) 81.7 ml/min; Est GFR (Non-African American) 70.5 ml/min; Potassium 3.3 mmol/L (3.5-5.1)
[2021-02-18] MEDS ORDERED: POTASSIUM CHLORIDE CRTAB 20 MEQ TABCR PO STA (01:05)
[2021-02-18] MEDS: POTASSIUM CHLORIDE / WTR 10 MEQ/100 ML PLCT IV SCH ×2 (01:28→02:47)
[2021-02-18 02:12] LABS: Eosinophils # (auto) 0.02 K/uL (0-0.5); Eosinophils % (auto) 0.3 %; Hematocrit (blood only) 31.2 % (37-47); Hemoglobin 11.1 g/dL (12.0-16.0); Immature Granulocytes # (auto) 0.01 K/uL (0.00-0.02); Immature Granulocytes % (auto) 0.1 %; Lymphocytes # (auto) 1.06 K/uL (1.2-3.4); Lymphocytes % (auto) 13.4 %; Mean Corpuscular Hemoglobin 30.6 pg (25-34); Mean Corpuscular Hgb Conc 35.6 g/dL (32-36); Mean Platelet Volume 10.5 fL (7.4-10.4); Monocytes # (auto) 0.64 K/uL (0.11-0.59); Monocytes % (auto) 8.1 %; Neutrophils # (auto) 6.21 K/uL (1.4-6.5); Neutrophils % (auto) 78.1 %; Platelet Count 220 K/uL (130-400); RDW Coefficient of Variation 12.5 % (11.5-14.5); RDW Standard Deviation 39.5 fL (36.4-46.3); Red Blood Count 3.63 M/uL (4.2-5.4); White Blood Count 7.94 K/uL (4.8-10.8)
[2021-02-18 04:04] LABS: Albumin Level 3.1 gm/dl (3.4-5.0); Creatinine Clr Calc Pharmacy 47.8 ml/min; Est GFR (African American) 94.5 ml/min; Est GFR (Non-African American) 81.5 ml/min; Magnesium 1.9 mg/dl (1.8-2.4)
[2021-02-18 04:07] LABS: Bilirubin,Total 0.9 mg/dl (0.2-1); Phosphorus 1.7 mg/dl (2.5-4.9); Total Protein 6.1 gm/dl (6.4-8.2)
[2021-02-18 05:16] LABS: Potassium 3.7 mmol/L (3.5-5.1)
[2021-02-18] MEDS ORDERED: POTASSIUM PHOS 3 MMOL/1 ML INFUSION IV STA (05:26)
[2021-02-18] MEDS ORDERED: POTASSIUM PHOSPHATE 21 MMOL in SODIUM CHLORIDE 0.9% 500 ML IV ONE (05:45)
[2021-02-18 06:43] LABS: BUN Creatinine Ratio 19.2 (10-20); Calcium 8.2 mg/dl (8.5-10.1); Est GFR (African American) 96.6 ml/min; Est GFR (Non-African American) 83.4 ml/min; Potassium 3.9 mmol/L (3.5-5.1)
[2021-02-18] MEDS ORDERED: DEXTROSE 5% 250 ML IV SCH (07:00)
[2021-02-18] MEDS ORDERED: DESMOPRESSIN ACETATE 1 MCG in SODIUM CHLORIDE 0.9% 50 ML IV SCH (07:30)
--- NOTE | 2021-02-18 07:33 | Critical Care Progress Note ---
Date of Service February 18, 2021 Assessment & Plan (1) Acute metabolic encephalopathy: Plan: Reason Critically Ill: Vaishnavi Bernal is an 86 y/o female w/ PMHx of HTN who presents w/ a day of worsening altered mental status likely secondary to acute hyponatremia. Mentation much improved. Neuro - [facility] ICU: negative. (tested for inattention). Mentation ~back to baseline. Patient is conversing in full sentences. Dysmetria resolved on exam. acute AMS likely 2/2 hyponatremia. RESOLVED + hypometria and mild-mod expressive aphasia which can be explained by hyponatremia. considered other etiologies. Low suspicion for infection at this time. Head CT w/o acute changes. Patient denies fall or head injury. Cardiac - Ecg w/ prolonged qtc 512. Avoid qtc-prolonging agents. monitor on telemetry. HTN Discontinue home HCTZ including upon discharge Resumed home lisinopril Respiratory - Saturating well on room air. No respiratory distress. No hx of lung disease. GI - Regular diet RENAL/LYTES - acute hyponatremia (last Na 1 year ago was 139), less likely chronic hypotonic per serum osm most likely hypovolemic hyponatremia, 2/2 dehydration and HCTZ use.. less likely SIADH, psychogenic polydipsia per exam, hypo vs euvolemic recent HCTZ use and dehydration Na corrected from 119->131 (mostly via large UOP. patient was on 7 hrs of 100ml/hr NSS). 1 dose ddavp and and d5 250ml given. 129 Na on repeat. Will check in 4 hrs and 6 hours after that. Hold further IV fluids. Replace lytes as needed. - James. Strict Is/Os. 3.7L in 3L out. ENDO - No known hx of DM. urine ketones/glucose noted ICU hyperglycemia protocol. A1c ordered. Reported distant hx of hyperthyroidism per son, patient denies recent thyroid medications. TSH ordered. HEME - Stable H/H. Follow CBC ID - No concerns for infection at this point. Will d/c empiric Zosyn. UA not c/w infection. BC, UC pending. Per patient, received covid vaccine booster 1 wk ago. LINES/IV ACCESS - PIVs intact. DVT PROPHYLAXIS - SQ Lovenox changed to heparin 5000u q12 ppx because of low weiht code: DNR/DNI dispo: ICU. stable for downgrade to [facility]/tele (2) Hyponatremia: (3) HTN (hypertension): (4) Osteoporosis: (5) Hypomagnesemia: (6) Hypocalcemia: Admission and Anticipated Discharge Date Admission Date: February 17, 2021 Supervising Physician Co-Signing Physician Notes Dr. Jaimes was resident physician during care of patient. I separately evaluated patient for sellers portions of the history and the exam. I was present during the critical portion of medical decision making, and I discussed the case with the resident. I generally agree with the findings and plan. Continue trending BMPs, no fluid restriction, discussed on multidisciplinary rounds. Stable for downgrade out of ICU today. Subjective Patient is feeling better this morning. She feels that her confusing and speech resolved overnight. She currently does not feel dizzy and denies any other symptoms. She is eating breakfast. Review of Systems Review of Systems: All systems reviewed & are unremarkable except as noted in HPI & below Constitutional: Denies fever, chills Eyes: Denies blurry vision, vision changes Cardiovascular: Denies chest pain, palpitations Respiratory: Denies shortness of breath Gastrointestinal: Denies abdominal pain, nausea, vomiting, constipation, diarrhea Genitourinary: +james Musculoskeletal: Denies weakness, muscle aches/pain, joint aches/pain Neurological: Denies headache, numbness, tingling, focal weakness. Physical Exam Physical Exam: General: A&Ox ~3. to person, time, place, and context (name, 2020, [facility], brought here because had "incident."). NAD. Cooperative. Elderly, frail appearing. HEENT: Atraumatic, normocephalic. Pulm: CTAB. -wheezes, -rales, -rhonchi. No respiratory distress. Cardiac: RRR, -mrg. Radial pulses intact and symmetrical. Abdominal: Nontender, nondistended, soft. Neuro. No dysmetria. Aphasia has resolved. Speech is fluent. Conversation slightly trails off, slightly tangential. Integ: thin skin. Bruise at L elbow. No LE edema. Results & Data Results & Data ([facility]) Vital Signs (Past 12 Hours) Vital Signs Temp Pulse Pulse Resp BP BP Pulse Ox 02/18/21 05:35 77 23 123/42 L 97 02/18/21 05:06 77 17 109/58 L 91 10/06/21 04:40 75 20 137/61 98 02/18/21 03:37 88 20 141/63 H 96 02/18/21 02:36 88 24 101/72 97 02/18/21 02:10 37.0 C 02/18/21 01:35 88 21 149/64 H 100 02/18/21 00:36 85 27 H 151/74 H 96 02/17/21 23:59 83 02/17/21 23:35 75 21 136/69 98 02/17/21 23:30 36.8 C 02/17/21 22:36 87 24 125/72 99 02/17/21 22:07 86 22 124/61 98 02/17/21 21:37 89 26 H 140/88 95 02/17/21 21:05 86 17 98 02/17/21 21:00 36.4 C L 83 84 26 H 128/86 96 Laboratory Results Hb stable. Na 119->119->120->124->131. gave 250ml D5w and 1 dose ddavp. ->129. K 3.3->3.9. Cl 86->100 Ca 8.2. Phos 1.7L 02/18/21 02:00 02/18/21 10:11 Medications Administered as of 7AM overnight, received 7 hours of 100ml/hr NSS. Kphos IV. KCL IVx2. KCl PO. D5 250mL ddavp ordered Resident Activity Tracking Resident Involvement: Resident Care Provided Care Provided: Adult [facility] Medicine
--- NOTE | 2021-02-18 08:10 | Billing Data ---
Date of Service February 17, 2021 Coding Level of Care Code Critical Care 1st - mins
--- NOTE | 2021-02-18 09:17 | Billing Data ---
Date of Service February 18, 2021 Coding Level of Care Code 07863 Subseq Hosp Care Lvl 3
[2021-02-18 10:52] LABS: BUN Creatinine Ratio 21.8 (10-20); Calcium 7.9 mg/dl (8.5-10.1); Creatinine Clr Calc Pharmacy 49.8 ml/min; Est GFR (African American) 97.2 ml/min; Est GFR (Non-African American) 83.8 ml/min; Potassium 3.9 mmol/L (3.5-5.1)
[2021-02-18] MEDS: lisinopril 20 MG TAB PO SCH (11:53)
--- NOTE | 2021-02-18 15:14 | Hospitalist Progress Note ---
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 At baseline patient is A&Ox3, lives alone, ambulates independently. She is being managed as follows: #. Acute metabolic encephalopathy: 2/2 hyponatremia #. 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 Hypotonic hypovolemic hyponatremia likely secondary to dehydration from working outside in the recent days preceding admission on top of HCTZ use Patient AOx3, sodium level coming up, nephrology on board Follow-up on [facility] Appreciate nephrology input We will DC HCTZ. #. HTN (hypertension): BP fairly controlled Holding hctz given hyponatremia Continue with home lisinopril Continue to monitor #. Electrolytes: Potassium/phosphorus/calcium Monitor and replace as appropriate Disposition: Downgrade to [facility] with telemetry, continue to monitor sodium level/electrolytes level. PT/OT evals pending. Admission and Anticipated Discharge Date Admission Date: February 17, 2021 Subjective Patient was sitting up in bed, on room air, NAD, no issues overnight. Per RN, patient is eating well. Patient has not had any bowel movement in the hospital. She is admitted yesterday. Patient states that she usually does not move bowel movements in the hospital. Patient is AO x3 and confusion has clearly resolved. Denies any other review of symptoms. Physical Exam Physical Exam: GENERAL: Alert and oriented x3. NAD, on RA. HEENT: No pallor, no icterus. Pupils equal, round and reactive to light. Oral mucosa moist. NECK: No JVD, no neck masses. HEART: S1 and S2 heard. Regular rate and rhythm. No murmur, no gallop. RESPIRATORY SYSTEM: Normal AP diameter. No accessory muscle use. No wheezing, no crackles. ABDOMEN: Soft, bowel sounds present, nontender, no distention. CENTRAL NERVOUS SYSTEM: Alert and oriented x3. No facial droop. Speech is clear. Obeys simple commands. Moves extremities. EXTREMITIES: No edema, no erythema seen. Urinary catheter in situ with light yellow urine collection. Results & Data Results & Data ([facility]) Vital Signs (Past 12 Hours) Vital Signs Temp Pulse Pulse Resp BP BP Pulse Ox 02/18/21 14:00 36.4 C L 79 18 154/70 H 98 02/18/21 12:06 91 H 19 123/86 98 02/18/21 11:36 87 19 162/100 H 99 02/18/21 10:07 87 18 179/82 H 99 02/18/21 08:06 36.6 C 88 15 142/67 H 98 02/18/21 08:00 73 02/18/21 05:35 77 23 123/42 L 97 02/18/21 05:06 77 17 109/58 L 91 02/18/21 04:40 75 20 137/61 98 02/18/21 03:37 88 20 141/63 H 96
[2021-02-18 15:17] LABS: BUN Creatinine Ratio 28.7 (10-20); Creatinine Clr Calc Pharmacy 50.7 ml/min; Est GFR (African American) 97.7 ml/min; Est GFR (Non-African American) 84.3 ml/min; Potassium 4.1 mmol/L (3.5-5.1)
[2021-02-18 15:27] LABS: Thyroid Stimulating Hormone 5.7 uIu/ml (0.300-4.500)
[2021-02-18 15:34] LABS: Estimated Average Glucose 111 mg/dl; Hemoglobin A1C 5.5 % (4.5-5.6)
--- NOTE | 2021-02-18 15:34 | Consultation Report ---
NEPHROLOGY CONSULTATION NOTE DATE OF SERVICE: 02/18/2021 REASON FOR CONSULTATION: Hyponatremia. HISTORY OF PRESENT ILLNESS: The patient is an 86-year-old female who is very healthy, vibrant, and v yocasta functional at baseline, who was admitted yesterday after she presented with confusion, serum sodi um was found to be 119. The patient does take hydrochlorothiazide and has been taking for years. Laurence kuhn admitted that for the last few days, she has been having some nausea as well as vomiting. She has been outdoor in her backyard doing weeding as well as lawn mowing for many days now. Her son's frien d stopped by her house to check on her and the patient appeared to be very confused, after which she was brought to the hospital. ALLERGIES: ADHESIVES AND BACITRACIN. MEDICATIONS: Home medication list was reviewed and is as per the reconciliation list. She does take hydrochlorothiazide 12.5 mg daily for a long time. PAST MEDICAL AND SURGICAL HISTORY: Includes hypertension, osteoporosis, hysterectomy, appendicectomy . FAMILY HISTORY: Negative for renal disease or dialysis. SOCIAL HISTORY: Never smoked. No alcohol. She lives alone at home. She is normally very active and vibrant and likes to spend a lot of time in her backyard. REVIEW OF SYSTEMS: At this point, she admitted having some nausea and somewhat poor appetite for the last few days, but at this point of time, she feels she is back to normal. PHYSICAL EXAMINATION: GENERAL: Elderly white female who does not appear to be confused at this point, she was able to tell me a very detailed account of her life history as well as recent episodes. VITAL SIGNS: Blood pressure is 142/67, pulse rate 88, temperature 36.6, and 98% on room air. HEENT: Mucous membrane is moist. NECK: Supple. No jugular venous distention. CHEST: Bilaterally clear to auscultation. CARDIOVASCULAR: S1, S2, regular. ABDOMEN: Soft, nontender. EXTREMITIES: Show no edema. NEUROLOGIC: At this point, she is awake, alert, oriented, moving all 4 extremities. Normal speech. LABORATORY TEST: Blood work shows serum sodium was 119 at the time of admission yesterday; this mor travis was 131 and the repeat one has come slightly low at 129. BUN is 12, creatinine 0.5. Other elec trolytes are normal. Urine osmolality was 292. Urine sodium 38. Urine analysis showed 2+ ketone, 1 + protein as well as 1+ blood. Chest x-ray was unremarkable. ASSESSMENT AND PLAN: An 86-year-old female who was admitted with acute confusion and was found to mercedes ve serum sodium of 119. With the use of IV fluid overnight, serum sodium has improved quite fast and it was 131 this morning. The rate of correction is slightly higher, but not by much. Since then with some use of desmopressin and D5, sodium has gone down and is now slightly lower at 129. Looking richy k at her previous laboratories done as an outpatient, serum sodium has been mostly normal, although s he has had a few readings of slightly low sodium of 134 in the past. The etiology of hyponatremia mercedes s to be attributed as hypovolemic hyponatremia at this time given the situation and was exacerbated b y the use of hydrochlorothiazide. She should never be on hydrochlorothiazide from now onwards. If s he absolutely needs to be on a diuretic, she can be on a loop diuretic, but not thiazide-based. I do not believe she really needs to be on any diuretics at all. Continue lisinopril. If needed, we can add low-dose amlodipine for blood pressure control. Given that her urine ketone was 2+, I have a str rohit suspicion that she was not really eating much food as she was having some nausea as well as vomit ing in the last few days, but she was still drinking and this created a big mismatch between solid an d liquid. So overall, the etiology of hyponatremia is hypovolemic hyponatremia in the setting of hyd rochlorothiazide use and very poor solid food intake. RECOMMENDATIONS: 1. At this point, the rate of correction of sodium is appropriate and we do not need to worry about rapid correction anymore. 2. We can use normal saline until tomorrow morning. 3. It appears her neurological symptoms have recovered pretty promptly with the correction of serum sodium. 4. Do not use hydrochlorothiazide ever and list as allergy. 5. Repeat BMP in the afternoon around 4:00 p.m. and then in the morning tomorrow. 6. Recommend to increase solid food intake, especially protein to have more normal serum sodium celso echavarria forward. Thank you very much for the consult. Job ID: [id number]
[2021-02-18 15:39] LABS: T4 Free Thyroxine 0.91 ng/dl (0.8-1.6)
[2021-02-18] MEDS: HEPARIN SOD 5,000 UNIT/0.5 ML VIAL SQ SCH (20:30)
[2021-02-18 21:27] LABS: BUN Creatinine Ratio 41.1 (10-20); Creatinine Clr Calc Pharmacy 52.7 ml/min; Est GFR (African American) 98.9 ml/min; Est GFR (Non-African American) 85.4 ml/min; Potassium 3.9 mmol/L (3.5-5.1)
[2021-02-19 07:39] LABS: Basophils # (auto) 0.02 K/uL (0-0.2); Basophils % (auto) 0.4 %; Eosinophils # (auto) 0.17 K/uL (0-0.5); Eosinophils % (auto) 3.5 %; Hematocrit (blood only) 30.4 % (37-47); Hemoglobin 10.7 g/dL (12.0-16.0); Lymphocytes # (auto) 1.07 K/uL (1.2-3.4); Lymphocytes % (auto) 21.9 %; Mean Corpuscular Hemoglobin 30.8 pg (25-34); Mean Corpuscular Hgb Conc 35.2 g/dL (32-36); Mean Corpuscular Volume 87.6 fL (80-100); Mean Platelet Volume 11.1 fL (7.4-10.4); Monocytes # (auto) 0.58 K/uL (0.11-0.59); Monocytes % (auto) 11.9 %; Neutrophils # (auto) 3.05 K/uL (1.4-6.5); Neutrophils % (auto) 62.3 %; Platelet Count 201 K/uL (130-400); RDW Coefficient of Variation 12.8 % (11.5-14.5); RDW Standard Deviation 41.2 fL (36.4-46.3); Red Blood Count 3.47 M/uL (4.2-5.4); White Blood Count 4.89 K/uL (4.8-10.8)
[2021-02-19 08:09] LABS: Albumin Level 2.7 gm/dl (3.4-5.0); BUN Creatinine Ratio 32.7 (10-20); Calcium 7.8 mg/dl (8.5-10.1); Creatinine Clr Calc Pharmacy 65.4 ml/min; Est GFR (African American) 105.2 ml/min; Est GFR (Non-African American) 90.8 ml/min; Magnesium 2.1 mg/dl (1.8-2.4); Potassium 3.5 mmol/L (3.5-5.1)
[2021-02-19] MEDS: lisinopril 20 MG TAB PO SCH (08:13)
[2021-02-19] MEDS: HEPARIN SOD 5,000 UNIT/0.5 ML VIAL SQ SCH (08:13)
[2021-02-19 08:24] LABS: Bilirubin,Total 0.7 mg/dl (0.2-1); Globulin 2.6 gm/dl (2.5-4.0); Phosphorus 1.3 mg/dl (2.5-4.9); Total Protein 5.3 gm/dl (6.4-8.2)
[2021-02-19] MEDS ORDERED: SODIUM PHOSPHATE 3 MMOL/1 ML INFUSION IV STA (08:34)
[2021-02-19] MEDS ORDERED: SODIUM PHOSPHATE 30 MMOL in SODIUM CHLORIDE 0.9% 500 ML IV ONE (09:00)
[2021-02-19] MEDS ORDERED: amLODIPine BESYLATE 5 MG TAB PO SCH (09:30)
[2021-02-19] MEDS ORDERED: amLODIPine BESYLATE 5 MG TAB PO STA (11:39)
[2021-02-19] MEDS ORDERED: amLODIPine BESYLATE 5 MG TAB PO ONE (11:39)
[2021-02-19] MEDS ORDERED: METOPROLOL TARTRATE 25 MG TAB PO STA (15:29)
--- NOTE | 2021-02-19 17:08 | Discharge Summary ---
Date of Service February 19, 2021 Admission HPI Per Admitting Provider This is an 86yo F with a PMH of HTN and osteoporosis who presents with confusion since yesterday. Was reportedly outside weeding during the day but had to sit down due to developing nausea. Son called her yesterday and noticed she seemed confused and slow to find her words. No slurring of speech. Son had a friend stop by house to check on her and he confirmed she seemed confused. At baseline patient is A&Ox3, lives alone, ambulates independently. Has been repeating herself and telling the same stories since yesterday. No headache, CP, SOB. No fever or chills. No focal weakness, ambulatory dysfunction. Oriented to person but unable to recall birthday. Tangential speech when asked specific questions but able to follow directions during exam. No urinary incontinence. Poor PO intake lately. Takes 12.5 mg HCTZ daily for HTN. Admission Exam Per Admitting Provider NAD, cachectic Heart: Normal S1/S2, no murmur Lungs: CTA, no wheezing or crackle Abd: ND, NT, soft LE: no edema Skin: skin erythema and scaling on the face Psych: AAOx1, normal Affect Principal Diagnosis Hyponatremia Discharge Exam GENERAL: Alert and oriented x3. NAD, on RA. HEENT: No pallor, no icterus. Pupils equal, round and reactive to light. Oral mucosa moist. NECK: No JVD, no neck masses. HEART: S1 and S2 heard. Regular rate and rhythm. No murmur, no gallop. RESPIRATORY SYSTEM: Normal AP diameter. No accessory muscle use. No wheezing, no crackles. ABDOMEN: Soft, bowel sounds present, nontender, no distention. CENTRAL NERVOUS SYSTEM: Alert and oriented x3. No facial droop. Speech is clear. Obeys simple commands. Moves extremities. EXTREMITIES: No edema, no erythema seen. 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 At baseline patient is A&Ox3, lives alone, ambulates independently. She was managed as follows: #. Acute metabolic encephalopathy: 2/2 hyponatremia #. 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 Hypotonic hypovolemic hyponatremia likely secondary to dehydration from working outside in the recent days preceding admission on top of HCTZ use Patient AOx3, sodium level came up nicely, 129 at the day of discharge. Nephrology okay with discharge, BMP to be repeated on Tuesday and the results to be forwarded to primary care physician. Patient advised to follow-up with primary care physician within a week time. Per nephrology, avoid hydrochlorothiazide in future. #. HTN (hypertension): BP fairly controlled Hydrochlorothiazide discontinued and amlodipine added instead Continue with home lisinopril Continue to monitor, follow-up with primary care physician for reevaluation and medication adjustment. #. Electrolytes: Potassium/phosphorus/calcium Monitored and replaced as appropriate Patient is being discharged to home with family support, following instructions were communicated at the time of discharge: Follow-up with your primary care physician within a week time. Get blood test BMP on Tuesday at your PCPs office to look at your sodium level. Take medications as prescribed. Avoid hydrochlorothiazide in future. Amlodipine 5 mg daily has been added for your blood pressure management. Increase solid food intake, especially protein to have more normal serum sodium going forward. Total Time Total Time Spent Total Time Spent (In Minutes): 40 Discharge Plan Discharge Items Patient Disposition: Home - Self-Care Reason For Visit: CONFUSION, HYPONATREMIA Discharge Diagnosis: Hyponatremia Activity: Resume your previous activity Non-emergency contact: Primary Care Provider Call non-emergency contact if: you have any medication questions and your symptoms worsen Follow-up/Referrals: Marco Parks MD [Primary Care Provider] - 02/24/21 11:00 am (Date & Time 02/24/2021 11:00 AM Provider Marco Parks III, MD [facility] ) Diet: Regular Addtl Attending Provider Instructions: Follow-up with your primary care physician within a week time. Get blood test BMP on Tuesday at your PCPs office to look at your sodium level. Take medications as prescribed. Avoid hydrochlorothiazide in future. Amlodipine 5 mg daily has been added for your blood pressure management. Increase solid food intake, especially protein to have more normal serum sodium going forward. Pending Studies at Discharge: Yes (Admitting blood culture-final results pending.) Stand-Alone Forms: My [facility] Rx, Smoking Cessation Medications and DC Order Prescriptions: New amlodipine 5 mg tablet 5 mg PO DAILY Qty: 30 RF: 0 Continued lisinopril [Zestril] 20 mg tablet 20 mg PO DAILY RF: 0 alendronate [Fosamax] 70 mg tablet 70 mg PO WK RF: 0 calcium carbonate [Calcium 500] 500 mg calcium (1,250 mg) Tablet 500 mg PO BID RF: 0 multivitamin with minerals Tablet 1 tab PO DAILY RF: 0 fluticasone propionate [Flonase Allergy Relief] 50 mcg/actuation spray,suspension 2 spray INTRANASAL DAILY RF: 0 cholecalciferol (vitamin D3) [Vitamin D3] 125 mcg (5,000 unit) Tablet 125 mcg PO DAILY RF: 0 Discontinued hydrochlorothiazide 25 mg tablet 12.5 mg PO DAILY RF: 0 Discharge Orders: Discharge Order (Routine); Ordered 02/19/21 Ordered By: Jayleen Anaya Admission Data Admit Date/Time: 02/17/21 17:33 Attending Provider: Jayleen Anaya Admit Provider: Rom Waller Primary Care Provider: Marco Parks Other Providers: Rom Waller ; Sebastian Mcqueen ; Camilo Navarrete
== END 2021-02-19 18:35 | disposition home or self-care (01) | DRG 640 ==
LOC: ED 12:47 → 1E 17:33 → SUATTDRO 17:33 → 1E 19:43 → 2N 02-18 18:40